=== PATIENT | female | born 1945 | race Caucasian/White ===

== ENCOUNTER 2020-08-14 22:28 | Inpatient (IN) | payer MEDICARE, OTHER ==
[~2020-08-14] VITALS: Ht 160 cm; Wt 45.4 kg
[~2020-08-14 22:28] MED LIST: LEVO125T8 PO; OXYC1TAB12 PO; PRAV40TA3 PO
--- NOTE | 2020-08-14 22:35 | NUR ---
PT BIBLAPD FROM HOME FOR 5150 C/O WORSENING DEPRESSION. PT AAOX4 BREATHING EVENLY AND UNLABORED. PT STATES SHE IS " ALLERGIC TO ALCOHOL AND KNOWS SHE CAN DRINK ONE BEER AND KILL HERSELF". PT SKIN WARM, DRY, AND INTACT. PT ATTACHED TO MONITOR. MD AT BEDSIDE. WILL CONTINUE TO MONITOR.
--- NOTE | 2020-08-14 22:46 | NUR ---
LAB AT BEDSIDE
[2020-08-14 22:54] LABS: BASOPHILS # (AUTO) 0.1 /CMM (0.0-0.2); BASOPHILS % (AUTO) 0.9 % (0.0-2.0); EOSINOPHILS % (AUTO) 3.1 % (0.0-6.0); HEMATOCRIT 37 % (33-45); HEMOGLOBIN 12.1 g/dL (11.5-14.8); LYMPHOCYTES # (AUTO) 1.5 /CMM (0.8-4.8); LYMPHOCYTES % (AUTO) 22.5 % (20.0-44.0); MEAN CORPUSCULAR HGB CONC 33 g/dl (31.0-36.0); MEAN CORPUSCULAR VOLUME 97 fL (82-100); MONOCYTES # (AUTO) 0.5 /CMM (0.1-1.30); MONOCYTES % (AUTO) 7.6 % (2.0-12.0); NEUTROPHILS # (AUTO) 4.4 /CMM (1.8-8.9); NEUTROPHILS % (AUTO) 65.9 % (43.0-81.0); PLATELET COUNT (AUTO) 470 /CMM (150-450); RED BLOOD CELL COUNT(AUTO) 3.79 MIL/uL (4.0-5.2); WHITE BLOOD COUNT (AUTO) 6.7 K/uL (4.3-11.0)
--- NOTE | 2020-08-14 22:58 | NUR ---
URINE COLLECTED, SENT TO LAB.
--- NOTE | 2020-08-14 22:58 | NUR ---
CHRISTOID SWABBED, SENT TO LAB.
[2020-08-14 23:14] LABS: ALANINE AMINOTRANSFERASE 10 U/L (12-78); ALBUMIN 3.1 g/dL (3.4-5.0); ALCOHOL, BLOOD < 3 mg/dL (0-0); ALKALINE PHOSPHATASE 121 U/L (46-116); ASPARTATE AMINOTRANSFERASE 14 U/L (15-37); BILIRUBIN,TOTAL 0.2 mg/dL (0.2-1.0); CALCIUM, SERUM 8.8 mg/dL (8.5-10.1); CARBON DIOXIDE 27 mmol/L (21-32); CHLORIDE 103 mmol/L (98-107); CREATININE 0.7 mg/dL (0.6-1.3); GLUCOSE 62 mg/dL (74-106); POTASSIUM 3.4 mmol/L (3.5-5.1); SODIUM SERUM 140 mmol/L (136-145); TOTAL PROTEIN, SERUM 6.8 g/dL (6.4-8.2); UREA NITROGEN, BLOOD 8 mg/dL (7-18)
[2020-08-14 23:22] LABS: ACETAMINOPHEN < 2 ug/ml (10-30)
[2020-08-14 23:30] LABS: BILIRUBIN,URINE Negative (NEGATIVE); COLOR,URINE YELLOW (YELLOW); LEUKOCYTE ESTERASE ,URINE Trace (NEGATIVE); NITRITE, URINE Negative (NEGATIVE); PROTEIN,URINE Negative (NEGATIVE); UGLUCOSE Negative (NEGATIVE); UROBILINOGEN,URINE 0.2 EU/dL (0.2)
--- NOTE | 2020-08-14 23:32 | NUR ---
lab called regarding negative covid result.
[2020-08-14] MEDS ORDERED: ACETAMINOPHEN 325 MG TABLET ONE (23:33)
--- NOTE | 2020-08-14 23:39 | NUR ---
PT IS REQUESTING PERCOCET FOR PAIN GEN BODY PAIN. PT WAS OFFERED TYLENOL. AND SHE REFUSED ANY REACTION TO ACETAMINOPHEN.
[2020-08-14 23:49] LABS: BACTERIA,URINE Few /HPF (None Seen); SQUAMOUS EPITHELIAL CELL,UR Few /HPF (None Seen)
[2020-08-15] MEDS ORDERED: ACETAMINOPHEN 325 MG TABLET PO ONE
[2020-08-15] MEDS ORDERED: clonazePAM 1 MG TABLET PO ONE
[2020-08-15] MEDS ORDERED: QUETIAPINE FUMARATE 100 MG TABLET PO ONE
[2020-08-15] MEDS ORDERED: QUETIAPINE FUMARATE 25 MG TABLET ONE (00:27)
[2020-08-15] MEDS ORDERED: clonazePAM 0.5 MG TABLET ONE (00:27)
--- NOTE | 2020-08-15 00:47 | NUR ---
pt moved to er bed 16 for closer observation. pt also provided with food as requested.
--- NOTE | 2020-08-15 03:47 | NUR ---
Patient is resting comfortably in bed with eyes closed. Easily aroused. VSS. will cont to monitor l
--- NOTE | 2020-08-15 05:05 | NUR ---
Patient is resting comfortably in bed with eyes closed. Easily aroused. will cont to monitor
--- NOTE | 2020-08-15 08:43 | NUR ---
ROOM GIVEN 216-[id number]
[2020-08-15 09:30] VITALS: BP 132/93
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
[2020-08-15] MEDS ORDERED: MAGNESIUM HYDROXIDE 30 ML UDC PO PRN (10:00)
--- NOTE | 2020-08-15 10:00 | NUR ---
NOTIFIED DR QUIÑONES FOR THE ADMISSION,RECEIVED ADMITTING ORDERS AND CARRIED OUT.PT IS ON .
[2020-08-15] MEDS: oxyCODONE/APAP (5/325 MG) 1 UDTAB TABLET PO PRN ×2 (10:33→18:22)
[2020-08-15] MEDS: LEVOTHYROXINE SODIUM 125 MCG TABLET PO SCH (10:33)
[2020-08-15] MEDS ORDERED: BLOOD SUGAR DIAGNOSTIC 1 EACH STRIP IN ONE (11:30)
[2020-08-15 16:00] VITALS: BP 90/54
--- NOTE | 2020-08-15 16:18 | NUR ---
RN-CO: Patient was given the Patient's Rights Handbook.
[2020-08-15] MEDS ORDERED: TRAZODONE 50 MG TABLET PO PRN (20:30)
[2020-08-15 20:41] VITALS: BP 127/72
[2020-08-15] MEDS: TEMAZEPAM 7.5 MG CAPSULE PO PRN (21:46)
[2020-08-15] MEDS: QUETIAPINE FUMARATE 100 MG TABLET PO SCH (21:46)
[2020-08-15] MEDS: ATORVASTATIN 10 MG TABLET PO SCH (22:11)
[2020-08-16] MEDS: oxyCODONE/APAP (5/325 MG) 1 UDTAB TABLET PO PRN ×3 (02:38→18:20)
[2020-08-16 07:54] LABS: ALBUMIN 2.9 g/dL (3.4-5.0); BILIRUBIN,TOTAL 0.3 mg/dL (0.2-1.0); CALCIUM, SERUM 8.9 mg/dL (8.5-10.1); CREATININE 0.6 mg/dL (0.6-1.3); POTASSIUM 3.8 mmol/L (3.5-5.1); TOTAL PROTEIN, SERUM 6.5 g/dL (6.4-8.2)
[2020-08-16 08:00] VITALS: BP 99/56
[2020-08-16] MEDS: VENLAFAXINE XR 75 MG CAP.SR.24H PO SCH (08:27)
[2020-08-16] MEDS: LEVOTHYROXINE SODIUM 125 MCG TABLET PO SCH (08:27)
--- NOTE | 2020-08-16 10:33 | NUR ---
gps bisque cleaner: notes c/o 01/04 back pain, medicated with 1 tab po of percocet. will continue to monitor.
--- NOTE | 2020-08-16 11:33 | NUR ---
gps hand dry cleaner: notes in bed sounds asleep. no s/s of distress noted. will continue to monitor.
--- NOTE | 2020-08-16 14:50 | NUR ---
Initial Discharge Plan: Pt currently resides in [facility] located at [address] [place] [address]; ([phone]). Per pt, she would like to return. SW will work with the pt and the MD regarding appropriate discharge planning. SW will form a safe and proper discharge.
[2020-08-16] MEDS: LORAZEPAM 0.5 MG TABLET PO PRN (15:09)
[2020-08-16 16:00] VITALS: BP 98/50
--- NOTE | 2020-08-16 18:20 | NUR ---
gps php software engineer: notes c/o 02/04 back pain, medicated with 1 tab po of percocet. will continue to monitor.
--- NOTE | 2020-08-16 19:20 | NUR ---
gps green jobs trainer: notes sounds asleep with no distress noted. report given to jolie (rn) for continuity of care.
[2020-08-16 20:24] VITALS: BP 147/63
[2020-08-16] MEDS: ATORVASTATIN 10 MG TABLET PO SCH (21:12)
[2020-08-16] MEDS: QUETIAPINE FUMARATE 100 MG TABLET PO SCH (21:13)
[2020-08-16] MEDS: TEMAZEPAM 7.5 MG CAPSULE PO PRN (21:13)
[2020-08-17] MEDS: oxyCODONE/APAP (5/325 MG) 1 UDTAB TABLET PO PRN ×3 (03:08→18:58)
[2020-08-17 08:00] VITALS: BP 109/65
[2020-08-17] MEDS: LEVOTHYROXINE SODIUM 125 MCG TABLET PO SCH (08:37)
[2020-08-17] MEDS: VENLAFAXINE XR 75 MG CAP.SR.24H PO SCH (08:37)
--- NOTE | 2020-08-17 11:03 | NUR ---
rn notes administered Percocet 5/325 mg po prn for generalized pain 02/04 per patient request, v/s taken bp-129/81, p-81, will monitoring.
[2020-08-17 16:00] VITALS: BP 99/64
[2020-08-17] MEDS: LORAZEPAM 0.5 MG TABLET PO PRN (16:50)
--- NOTE | 2020-08-17 16:50 | NUR ---
rn notes administered ativan 0.5 mg po prn for anxiety per patient request. will monitoring.
--- NOTE | 2020-08-17 18:58 | NUR ---
rn notes administered Percocet 5/325 mg po prn fo lower back pain 02/04 per patient request. bp 102/64, p-81. will monitoring.
[2020-08-17 20:50] VITALS: BP 103/59
[2020-08-17] MEDS: QUETIAPINE FUMARATE 100 MG TABLET PO SCH (21:06)
[2020-08-17] MEDS: ATORVASTATIN 10 MG TABLET PO SCH (21:06)
[2020-08-17] MEDS: TEMAZEPAM 7.5 MG CAPSULE PO PRN (22:02)
--- NOTE | 2020-08-17 22:02 | NUR ---
NURSE NOTES: PATIENT REQUESTING FOR MEDICATION FOR SLEEP. RESTORIL 7.5 MG GIVEN ORALLY. WILL MONITOR PATIENT AND EFFICACY OF MEDICATION FOR THE PATIENT.
[2020-08-18] MEDS: oxyCODONE/APAP (5/325 MG) 1 UDTAB TABLET PO PRN ×4 (03:23→21:32)
[2020-08-18] MEDS: LEVOTHYROXINE SODIUM 125 MCG TABLET PO SCH (07:44)
[2020-08-18 08:00] VITALS: BP 106/55
[2020-08-18] MEDS: VENLAFAXINE XR 75 MG CAP.SR.24H PO SCH (09:07)
[2020-08-18 16:00] VITALS: BP 105/70
[2020-08-18 19:53] VITALS: BP 113/71
[2020-08-18] MEDS: QUETIAPINE FUMARATE 100 MG TABLET PO SCH (21:24)
[2020-08-18] MEDS: TEMAZEPAM 7.5 MG CAPSULE PO PRN (21:31)
[2020-08-18] MEDS ORDERED: ATORVASTATIN 10 MG TABLET ONE (22:10)
[2020-08-18] MEDS: ATORVASTATIN 10 MG TABLET PO SCH (22:26)
[2020-08-19 08:00] VITALS: BP 105/72
[2020-08-19] MEDS: LEVOTHYROXINE SODIUM 125 MCG TABLET PO SCH (09:21)
[2020-08-19] MEDS: VENLAFAXINE XR 75 MG CAP.SR.24H PO SCH (09:21)
[2020-08-19] MEDS: oxyCODONE/APAP (5/325 MG) 1 UDTAB TABLET PO PRN ×3 (11:38→19:26)
[2020-08-19 16:00] VITALS: BP 108/60
[2020-08-19] MEDS: LORAZEPAM 0.5 MG TABLET PO PRN (16:32)
--- NOTE | 2020-08-19 19:26 | NUR ---
GPS-RN NOTES: LOWER BACK PAIN PATIENT C/O LOWER BACK PAIN ON A PAIN SCALE OF 8/10. ADMINISTERED PERCOCET 5/325MG PO ORDERED. WILL CONTINUE TO REASSESS PAIN.
[2020-08-19 19:59] VITALS: BP 102/60
[2020-08-19] MEDS: QUETIAPINE FUMARATE 100 MG TABLET PO SCH (21:12)
[2020-08-19] MEDS: ATORVASTATIN 10 MG TABLET PO SCH (21:12)
[2020-08-20] MEDS: TEMAZEPAM 7.5 MG CAPSULE PO PRN (02:09)
--- NOTE | 2020-08-20 02:09 | NUR ---
GPS-RN NOTES: INSOMNIA PATIENT C/O INABILITY TO SLEEP. ADMINISTERED RESTORIL 7.5MG PO ORDERED. WILL CONTINUE TO MONITOR.
[2020-08-20] MEDS: LEVOTHYROXINE SODIUM 125 MCG TABLET PO SCH (07:39)
[2020-08-20] MEDS: oxyCODONE/APAP (5/325 MG) 1 UDTAB TABLET PO PRN ×3 (07:39→22:53)
--- NOTE | 2020-08-20 07:56 | NUR ---
RN Note: Easily arousable, aaox3, with c/o lower back pain 02/04-medicated with prn percocet. No change in gait nor morning activity. Very little breakfast consumed. No
[2020-08-20 08:00] VITALS: BP 102/47
[2020-08-20] MEDS: VENLAFAXINE XR 75 MG CAP.SR.24H PO SCH (08:30)
[2020-08-20] MEDS: LORAZEPAM 0.5 MG TABLET PO PRN ×2 (12:38→19:49)
[2020-08-20 16:00] VITALS: BP 121/74
[2020-08-20] MEDS: QUETIAPINE FUMARATE 100 MG TABLET PO SCH (21:03)
[2020-08-20] MEDS: ATORVASTATIN 10 MG TABLET PO SCH (21:04)
[2020-08-20 21:32] VITALS: BP 138/86
[2020-08-21] MEDS: TEMAZEPAM 7.5 MG CAPSULE PO PRN (02:16)
[2020-08-21 08:00] VITALS: BP 97/51
[2020-08-21] MEDS: VENLAFAXINE XR 75 MG CAP.SR.24H PO SCH (08:13)
[2020-08-21] MEDS: LEVOTHYROXINE SODIUM 125 MCG TABLET PO SCH (08:13)
[2020-08-21] MEDS: oxyCODONE/APAP (5/325 MG) 1 UDTAB TABLET PO PRN ×3 (08:16→16:34)
--- NOTE | 2020-08-21 11:02 | NUR ---
Probable Cause Hearing: Pts [id number] hold was upheld for grave disability and danger to self.
[2020-08-21] MEDS: LORAZEPAM 0.5 MG TABLET PO PRN ×2 (13:54→19:44)
[2020-08-21 16:00] VITALS: BP 117/70
--- NOTE | 2020-08-21 19:15 | NUR ---
PT AOX3, AMBULATING IN THE HALLS WITH A STEADY GAIT. DENIES SI AT THIS TIME. DENIES PAIN AT THIS TIME. COOPERATIVE WITH CARE.
[2020-08-21] MEDS: QUETIAPINE FUMARATE 100 MG TABLET PO SCH (21:03)
[2020-08-21] MEDS: ATORVASTATIN 10 MG TABLET PO SCH (21:03)
[2020-08-21 21:09] VITALS: BP 135/82
[2020-08-22] MEDS: oxyCODONE/APAP (5/325 MG) 1 UDTAB TABLET PO PRN ×3 (00:16→16:26)
--- NOTE | 2020-08-22 06:31 | NUR ---
PT SLEPT THROUGHOUT THE NIGHT. VERY COMPLIANT, CALM AND COOPERATIVE. AOX3, ALFRED, RESPIRATIONS EVEN AND UNLABORED. C/O BACK PAIN AT HS AND MEDICATED PER MD ORDER. DENIES SI AND HI. SAFETY MAINTAINED.
[2020-08-22] MEDS: LEVOTHYROXINE SODIUM 125 MCG TABLET PO SCH (07:30)
[2020-08-22 08:00] VITALS: BP 97/65
[2020-08-22] MEDS: VENLAFAXINE XR 75 MG CAP.SR.24H PO SCH (08:35)
[2020-08-22] MEDS: ENSURE ENLIVE 237 ML LIQUID (VANILLA) PO SCH ×3 (10:30→17:42)
[2020-08-22] MEDS: LORAZEPAM 0.5 MG TABLET PO PRN (13:48)
--- NOTE | 2020-08-22 14:20 | NUR ---
Individual Intervention: SW met with the pt and she stated that she wanted a listed of psychiatrists that take Medicare. SW stated that she will print it out and provide that information to her. Pt stated that she was going to call and find one for herself because she does not currently like the psychiatrist that she sees.
[2020-08-22 16:00] VITALS: BP 124/67
[2020-08-22 20:00] VITALS: BP 130/79
[2020-08-22 20:42] VITALS: BP 130/79
[2020-08-22] MEDS: ATORVASTATIN 10 MG TABLET PO SCH (21:05)
[2020-08-22] MEDS: QUETIAPINE FUMARATE 100 MG TABLET PO SCH (21:05)
[2020-08-23] MEDS: oxyCODONE/APAP (5/325 MG) 1 UDTAB TABLET PO PRN ×4 (00:37→23:37)
--- NOTE | 2020-08-23 00:39 | NUR ---
GPS RN NOTE: PAIN PATIENT C/O LOWER BACK PAIN 02/04, WANTED TO TAKE PERCOCET ONLY. PRN PERCOCET 5/325 MG 1 TAB PO GIVEN ORDERED. WILL CONTINUE TO MONITOR.
[2020-08-23] MEDS: LEVOTHYROXINE SODIUM 125 MCG TABLET PO SCH (07:44)
[2020-08-23 08:00] VITALS: BP 110/58
[2020-08-23] MEDS: ENSURE ENLIVE 237 ML LIQUID (VANILLA) PO SCH ×3 (08:06→16:41)
[2020-08-23] MEDS: VENLAFAXINE XR 75 MG CAP.SR.24H PO SCH (08:06)
--- NOTE | 2020-08-23 09:00 | NUR ---
RN NOTE- PT ALERT ORIENTED PERSON PLACE TIME PURPOSE CALM DIRECTABLE PO INTAKE GOOD MED COMPLIANT DENIES ALL
--- NOTE | 2020-08-23 11:30 | NUR ---
Individual Intervention: SW met with the pt in the SW office and the pt stated that she wanted to be discharged to the [facility] on Wednesday because she has been feeling better and less depressed. MARTHA stated that the pts MD stated that would be appreciate and so the SW will plan for that.
[2020-08-23] MEDS: LORAZEPAM 0.5 MG TABLET PO PRN (13:50)
--- NOTE | 2020-08-23 13:50 | NUR ---
RN NOTE- PT C/O ANXIETY RESTLESSNESS. ATIVAN 0.5 MG GIVEN
[2020-08-23 16:00] VITALS: BP 124/75
[2020-08-23 20:33] VITALS: BP 139/76
[2020-08-23] MEDS: ATORVASTATIN 10 MG TABLET PO SCH (21:02)
[2020-08-23] MEDS: QUETIAPINE FUMARATE 100 MG TABLET PO SCH (21:02)
--- NOTE | 2020-08-23 23:38 | NUR ---
GPS-RN NOTES: LOWER BACK PAIN PATIENT C/O LOWER BACK PAIN ON A PAIN SCALE OF 8/10. ADMINISTERED PERCOCET 5/325MG PO ORDERED. WILL CONTINUE TO MONITOR, REASSESS PAIN.
--- NOTE | 2020-08-24 07:01 | NUR ---
RN NOTES: PATIENT RESTING IN ROOM. NO S/S OF DISTRESS. NO CHANGE OF CONDITION NOTED, SAFETY PRECAUTION MAINTAINED, ALL PATIENT CARE NEEDS MET AT THIS TIME. WILL CONTINUE TO MONITOR PATIENT FOR MOOD, BEHAVIOR AND SAFETY AND ENDORSE TO AM SHIFT FOR CONTINUITY CARE.
[2020-08-24 08:00] VITALS: BP 106/58
[2020-08-24] MEDS: LEVOTHYROXINE SODIUM 125 MCG TABLET PO SCH (08:39)
[2020-08-24] MEDS: oxyCODONE/APAP (5/325 MG) 1 UDTAB TABLET PO PRN ×2 (08:39→16:21)
[2020-08-24] MEDS: VENLAFAXINE XR 75 MG CAP.SR.24H PO SCH (08:39)
[2020-08-24] MEDS: ENSURE ENLIVE 237 ML LIQUID (VANILLA) PO SCH ×3 (09:02→16:24)
[2020-08-24] MEDS: LORAZEPAM 0.5 MG TABLET PO PRN (14:43)
[2020-08-24 16:00] VITALS: BP 90/57
[2020-08-24] MEDS: MAG HYDROX/AL HYDROX/SIMETH 30 ML UDC PO PRN (16:21)
[2020-08-24 20:10] VITALS: BP 120/73
[2020-08-24 20:11] VITALS: BP 120/73
[2020-08-24 20:23] VITALS: BP 120/73
[2020-08-24] MEDS: QUETIAPINE FUMARATE 100 MG TABLET PO SCH (21:30)
[2020-08-24] MEDS: ATORVASTATIN 10 MG TABLET PO SCH (21:31)
[2020-08-25] MEDS: oxyCODONE/APAP (5/325 MG) 1 UDTAB TABLET PO PRN ×3 (00:36→17:00)
--- NOTE | 2020-08-25 00:39 | NUR ---
RN NOTE: PAIN PATIENT C/O LOWER BACK PAIN 02/04 & REQUESTED TO GET PERCOCET ONLY. PRN PERCOCET 5/325 MG 1 TAB PO ADMINISTERED. WILL CONTINUE TO MONITOR.
[2020-08-25 08:00] VITALS: BP 105/69
[2020-08-25] MEDS: VENLAFAXINE XR 75 MG CAP.SR.24H PO SCH (08:45)
[2020-08-25] MEDS: LEVOTHYROXINE SODIUM 125 MCG TABLET PO SCH (08:46)
[2020-08-25] MEDS: ENSURE ENLIVE 237 ML LIQUID (VANILLA) PO SCH ×3 (08:48→15:18)
[2020-08-25] MEDS: LORAZEPAM 0.5 MG TABLET PO PRN (13:56)
[2020-08-25] MEDS: MAG HYDROX/AL HYDROX/SIMETH 30 ML UDC PO PRN (15:18)
[2020-08-25 16:00] VITALS: BP 115/69
[2020-08-25 20:52] VITALS: BP 117/69
[2020-08-25] MEDS: ATORVASTATIN 10 MG TABLET PO SCH (20:57)
[2020-08-25] MEDS: QUETIAPINE FUMARATE 100 MG TABLET PO SCH (20:57)
[2020-08-25] MEDS: TEMAZEPAM 7.5 MG CAPSULE PO PRN (21:45)
--- NOTE | 2020-08-25 21:50 | NUR ---
RN NOTE PATIENT C/O NOT BEING ABLE TO SLEEP, REQUESTED RESTORIL. MEDICATION ADMINISTERED WILL CONTINUE MONITORING CLOSELY.
[2020-08-26] MEDS: oxyCODONE/APAP (5/325 MG) 1 UDTAB TABLET PO PRN ×2 (01:11→08:55)
[2020-08-26 08:00] VITALS: BP 107/57
[2020-08-26] MEDS: LEVOTHYROXINE SODIUM 125 MCG TABLET PO SCH (08:55)
[2020-08-26] MEDS: VENLAFAXINE XR 75 MG CAP.SR.24H PO SCH (08:55)
[2020-08-26] MEDS: ENSURE ENLIVE 237 ML LIQUID (VANILLA) PO SCH ×2 (08:56→13:21)
[2020-08-26] MEDS: LORAZEPAM 0.5 MG TABLET PO PRN (11:31)
--- NOTE | 2020-08-26 13:10 | NUR ---
Discharge Note: Pt will be discharged to her [facility] located at [address] [place] [id number]; ([phone]). Pt will be discharged at 1:00pm via [facility]. SW did not have any family or any parts counterperson to notify. Upon discharge, pts mood appears to be euthymic with congruent affect. Pt denies suicidal and homicidal ideation and denies visual and auditory hallucinations. Pt appears to be alert and oriented x4 (time, place, self and situation). Pt appears to be ambulatory and appropriately dressed and groomed. Pt will follow up with psychiatrist, Dr. Carloine Arce, located at [address] [facility] [address], [place] [address] ([phone]) on 09/09/20 at 9:00am and will also follow up with bucket operator, Dr. Zackery Romero, located at [address] [place] [phone] ([phone]) on 09/24/20 at 2:00pm. The multidisciplinary exit care form was done, printed, signed, and given to the patient.
--- NOTE | 2020-08-26 14:23 | NUR ---
JUNIOR UNDERWRITER NOTE: 74 Y/O FEMALE DISCHARGED TO INTERMEDIATE IN STABLE CONDITION. MOOD EUTHYMIC WITH CONGRUENT AFFECT. COOPERATIVE AND COMPLIANT. STATES "I WILL CONTINUE TO TAKE MY MEDICINE ORDERED AND FOLLOW UP WITH MY DOCTORS." DENIES SI/HI, VISUAL AND AUDITORY HALLUCINATIONS. MEDICATIONS REVIEWED AND PRESCRIPTIONS GIVEN. DISCUSSED AFTERCARE AT INTERMEDIATE AND THE NEED TO FOLLOW UP WITH PHYSICIANS. PARANOIA, DEPRESSION AND ANXIETY LESSEN. TREATMENT PLAN GOALS MET. COPY OF AFTERCARE PROVIDED AND BELONGINGS GIVEN. ESCORTED TO [facility]AXI IN WHEELCHAIR ACCOMPANIED BY STAFF MEMBER.
== END 2020-08-26 14:15 | disposition home or self-care (01) | DRG 885 ==
LOC: ER 22:31 → GPS 08-15 08:58
PROVIDERS: ADMIT Psychiatry & Neurology Psychiatry; ATTEND Internal Medicine
DX: F33.3 Major depressive disorder, recurrent, severe with psychotic symptoms (principal); F23 Brief psychotic disorder; R45.851 Suicidal ideations; E44.0 Moderate protein-calorie malnutrition; Z68.1 Body mass index [BMI] 19.9 or less, adult; F03.90 Unspecified dementia, unspecified severity, without behavioral disturbance, psychotic disturbance, mood disturbance, and anxiety; E03.9 Hypothyroidism, unspecified; I25.10 Atherosclerotic heart disease of native coronary artery without angina pectoris; K44.9 Diaphragmatic hernia without obstruction or gangrene; F43.10 Post-traumatic stress disorder, unspecified; G89.29 Other chronic pain; Z86.73 Personal history of transient ischemic attack (TIA), and cerebral infarction without residual deficits; M62.81 Muscle weakness (generalized); F41.9 Anxiety disorder, unspecified; F29 Unspecified psychosis not due to a substance or known physiological condition; M48.00 Spinal stenosis, site unspecified; K27.9 Peptic ulcer, site unspecified, unspecified as acute or chronic, without hemorrhage or perforation; Z20.822 Contact with and (suspected) exposure to COVID-19; Z87.11 Personal history of peptic ulcer disease
CPT/HCPCS: 36415; 80048-TC; 80053-TC; 80061-TC; 80076-TC; 81001; 82962-TC; 85025-TC; 87081-TC; 97112-TC; 97116-TC; 97530-TC; C9803; G0480

== ENCOUNTER 2022-01-22 17:54 | Inpatient (IN) | payer OTHER ==
[~2022-01-22] VITALS: Ht 154.9 cm; Wt 54.4 kg
[2022-01-22] MEDS ORDERED: ONDANSETRON HCL/PF 4 MG/2 ML VIAL IVP ONE (18:30)
[2022-01-22] MEDS ORDERED: IV NS 0.9% 1,000 ML BAG IV ONE (18:30)
[2022-01-22] MEDS ORDERED: TRAZ-257 MT (18:31)
[2022-01-22] MEDS ORDERED: ONDANSETRON HCL/PF 4 MG/2 ML VIAL ONE (18:34)
--- NOTE | 2022-01-22 18:38 | NUR ---
bibra88, called 911 c/o lower back pain, nausea and vomiting today. Loss of appetite x a month. On room air, breathing evenly and unlabored. Kept comfortable, will continue to monitor accordingly.
--- NOTE | 2022-01-22 18:44 | NUR ---
covid swab collected dna sent to lab.
[2022-01-22] MEDS ORDERED: ACETAMINOPHEN ES 500 MG TABLET PO ONE (19:00)
[2022-01-22] MEDS ORDERED: ACETAMINOPHEN ES 500 MG TABLET ONE (19:02)
[2022-01-22 19:29] LABS: CALCIUM, SERUM 8.7 mg/dL (8.5-10.1); CARBON DIOXIDE 24 mmol/L (21-32); CHLORIDE 100 mmol/L (98-107); CREATININE 0.5 mg/dL (0.6-1.3); GLUCOSE 94 mg/dL (74-106); POTASSIUM 3.6 mmol/L (3.5-5.1); SODIUM SERUM 135 mmol/L (136-145); UREA NITROGEN, BLOOD 5 mg/dL (7-18)
--- NOTE | 2022-01-22 20:11 | NUR ---
FOLLOWED UP WITH LAB REGARDING RESULT
[2022-01-22 20:24] LABS: BASOPHILS % (AUTO) 0.3 % (0.0-2.0); EOSINOPHILS % (AUTO) 0.5 % (0.0-6.0); HEMATOCRIT 36 % (33-45); HEMOGLOBIN 12.3 g/dL (11.5-14.8); LYMPHOCYTES # (AUTO) 1.8 K/uL (0.8-4.8); LYMPHOCYTES % (AUTO) 21.3 % (20.0-44.0); MEAN CORPUSCULAR HGB CONC 34 g/dl (31.0-36.0); MEAN CORPUSCULAR VOLUME 97 fL (82-100); MONOCYTES # (AUTO) 0.9 K/uL (0.1-1.30); MONOCYTES % (AUTO) 10.8 % (2.0-12.0); NEUTROPHILS # (AUTO) 5.6 K/uL (1.8-8.9); NEUTROPHILS % (AUTO) 67.1 % (43.0-81.0); PLATELET COUNT (AUTO) 447 K/uL (150-450); RED BLOOD CELL COUNT(AUTO) 3.72 MIL/uL (4.0-5.2); WHITE BLOOD COUNT (AUTO) 8.3 K/uL (4.3-11.0)
[2022-01-22 20:44] LABS: ALKALINE PHOSPHATASE 88 U/L (46-116); BILIRUBIN,DIRECT 0.1 mg/dL (0.0-0.2); BILIRUBIN,TOTAL 0.3 mg/dL (0.2-1.0)
[2022-01-22 20:45] LABS: ALANINE AMINOTRANSFERASE 16 U/L (12-78); ALBUMIN 3.5 g/dL (3.4-5.0); ASPARTATE AMINOTRANSFERASE 17 U/L (15-37); TOTAL PROTEIN, SERUM 7.2 g/dL (6.4-8.2)
--- NOTE | 2022-01-22 21:07 | NUR ---
SPOKE WITH BUSHRA, ELECTRICAL LINESWORKER FOR CLINICALS.
--- NOTE | 2022-01-22 22:45 | NUR ---
FOLLOWED UP WTAnastacio TOMLINSON FROM [employer]. AWAITING FOR A PEER TO PEER.
--- NOTE | 2022-01-22 22:49 | NUR ---
SPOKE WITH LUCINDA, ACCOUNTING BOOKKEEPER. PT IS AUTHORIZED FOR ADMISSION. AUTH# [id number]
[2022-01-22] MEDS ORDERED: IV NS 0.9% 1,000 ML IV PRN (23:30)
[2022-01-22] MEDS ORDERED: Z GUARD REMEDY 4 OZ OINT TP PRN (23:30)
[2022-01-22] MEDS ORDERED: MAG HYDROX/AL HYDROX/SIMETH 30 ML UDC PO PRN (23:30)
[2022-01-22] MEDS ORDERED: MAGNESIUM HYDROXIDE 30 ML UDC PO PRN (23:30)
[2022-01-22] MEDS ORDERED: ONDANSETRON HCL/PF 4 MG/2 ML VIAL IVP PRN (23:30)
[2022-01-22] MEDS ORDERED: ZOLPIDEM TARTRATE 5 MG TABLET PO PRN (23:30)
[2022-01-22] MEDS ORDERED: ACETAMINOPHEN 325 MG TABLET PO PRN (23:30)
--- NOTE | 2022-01-23 04:58 | NUR ---
PROTECTOR PLATE ATTACHER AT PT'S BEDSIDE
[2022-01-23] MEDS ORDERED: TRAZODONE 50 MG TABLET PO PRN (05:00)
[2022-01-23 05:04] LABS: BASOPHILS % (AUTO) 0.6 % (0.0-2.0); EOSINOPHILS % (AUTO) 0.8 % (0.0-6.0); HEMATOCRIT 37 % (33-45); HEMOGLOBIN 12.6 g/dL (11.5-14.8); LYMPHOCYTES # (AUTO) 1.1 K/uL (0.8-4.8); LYMPHOCYTES % (AUTO) 15.4 % (20.0-44.0); MEAN CORPUSCULAR HGB CONC 34 g/dl (31.0-36.0); MEAN CORPUSCULAR VOLUME 98 fL (82-100); MONOCYTES # (AUTO) 0.6 K/uL (0.1-1.30); NEUTROPHILS # (AUTO) 5.1 K/uL (1.8-8.9); NEUTROPHILS % (AUTO) 74.2 % (43.0-81.0); PLATELET COUNT (AUTO) 378 K/uL (150-450); RED BLOOD CELL COUNT(AUTO) 3.81 MIL/uL (4.0-5.2); WHITE BLOOD COUNT (AUTO) 6.9 K/uL (4.3-11.0)
[2022-01-23 05:23] LABS: CALCIUM, SERUM 8.5 mg/dL (8.5-10.1); CARBON DIOXIDE 26 mmol/L (21-32); CHLORIDE 106 mmol/L (98-107); CREATININE 0.6 mg/dL (0.6-1.3); GLUCOSE 103 mg/dL (74-106); MAGNESIUM 2.3 mg/dL (1.8-2.4); PHOSPHORUS 3.3 mg/dL (2.5-4.9); POTASSIUM 3.7 mmol/L (3.5-5.1); SODIUM SERUM 139 mmol/L (136-145); UREA NITROGEN, BLOOD 6 mg/dL (7-18)
[2022-01-23 05:32] LABS: THYROID STIMULATING HORMONE 2.124 uIU/mL (0.358-3.74)
[2022-01-23] MEDS ORDERED: LEVOTHYROXINE SODIUM 25 MCG TABLET ONE (07:55)
[2022-01-23] MEDS ORDERED: LEVOTHYROXINE SODIUM 100 MCG TABLET ONE (07:55)
[2022-01-23] MEDS ORDERED: LEVOTHYROXINE SODIUM 50 MCG TABLET ONE (07:55)
[2022-01-23] MEDS: LEVOTHYROXINE SODIUM 175 MCG TABLET PO SCH (08:00)
[2022-01-23] MEDS ORDERED: oxyCODONE/APAP (5/325 MG) 1 UDTAB TABLET ONE (09:05)
[2022-01-23] MEDS: oxyCODONE/APAP (5/325 MG) 1 UDTAB TABLET PO PRN ×2 (09:11→21:22)
[2022-01-23] MEDS ORDERED: ONDANSETRON HCL/PF 4 MG/2 ML VIAL ONE (09:35)
--- NOTE | 2022-01-23 14:40 | NUR ---
DR. PEREA AT BEDSIDE
--- NOTE | 2022-01-23 16:45 | NUR ---
SEEN BY CLINICIAN ART
--- NOTE | 2022-01-23 17:12 | NUR ---
Michelle hendricks in [facility] - 01/23/22 at 1845 by BONNIE BED [id number] - A
--- NOTE | 2022-01-23 18:41 | NUR ---
REPORT GIVEN TO THANG GOLDSTEIN FOR AMIRA
[2022-01-23] MEDS ORDERED: clonazePAM 0.5 MG TABLET PO PRN (19:30)
[2022-01-23] MEDS ORDERED: MAGNESIUM HYDROXIDE 30 ML UDC PO PRN (19:30)
[2022-01-23] MEDS ORDERED: MAG HYDROX/AL HYDROX/SIMETH 30 ML UDC PO PRN (19:30)
[2022-01-23] MEDS ORDERED: TEMAZEPAM 7.5 MG CAPSULE PO PRN (19:30)
[2022-01-23 20:30] VITALS: BP 114/67
[2022-01-23] MEDS ORDERED: BLOOD SUGAR DIAGNOSTIC 1 EACH STRIP IN ONE (22:00)
[2022-01-23] MEDS ORDERED: ATORVASTATIN 10 MG TABLET PO SCH (22:00)
[2022-01-23 23:30] VITALS: BP 121/73
--- NOTE | 2022-01-23 23:42 | NUR ---
RN NOTES : ADMISSION NOTES: ADMITTED THIS 71Y/O FEMALE PATIENT DIRECT ADMIT FROM [facility] , INITIALLY FROM HOME. ADMITTED TO 5150 HOLD STATUS, PER HOLD PT. BIB SELF COMPLAINING OF DEPRESSION AND SI WITH A PLAN TO DRINK BEER PT. STATED ALLERGIC TO ALCOHOL AND THEREFORE IF SHE DRANK IT SHE WOULD . . UPON FACE TO FACE ASSESSMENT PATIENT IS A&O X ,3 DEPRESSED FLAT AFFECT,ANXIOUS ,EASILY AGITATED, RESTLESS ,PARANOID ,DISHELVED , NEEDY ,DEMENDING ,NEEDS FREQUENTLY REDIRECTIONS , DENIES SI /HI AT THIS TIME, PT. IS POOR HISTORIAN, POOR INSIGHT ,POOR JUDGEMENT , BOTH MD AWARE AND NOTIFIED OF THE ADMISSION, BELONGINGS CONTRABAND WERE DONE , PT. REFUSED SIGNS ADMISSION CONSENT PAPER DUE TO DEPRESSED, POOR HYGINE ,ENCOURAGED PT. TO TAKE SHOWER, PT. RIGHTS DISCUSS BY HOSPITALITY JOB TITLES , PROVIDE THE PT. WITH HANDBOOK, AND MEDICATIONS GUIDE, ENVIRONMENTAL SAFETY CHECK DONE, ENCOURAGED PT. VERBALIZED ANY FEELING CONCERN TO STAFF, ORIENT TO UNIT POLICY, NO ACUTE DISTRESS NOTED,VITAL SIGNS WNL ,DENIES ANY PAIN AT THIS TIME,WILL CONTINUE TO MONITOR FOR Q15 SAFETY AND BEHAVIOR.
--- NOTE | 2022-01-23 23:53 | NUR ---
RN NOTES: PT. REFUSED SKIN ASSESSMENT AND PHOTO TAKEN , PER TP. MY SKIN IS FINE ,NOTHING HAPPENED TO MY SKIN AND I WANT SLEEP, PT. STRONGLY REFUSED , ENCOURAGED X3 , PT. BEHAVIOR EASILY AGITED, UNCOOERTIVE .
--- NOTE | 2022-01-24 06:26 | NUR ---
RN NOTES: UNABLE TO NOTIFY FAMILY MEMBER , PT. DID NIT PROVIDE ANY PHONE NUMBER.
--- NOTE | 2022-01-24 06:28 | NUR ---
RN NOTES: UNABLE TO NOTIFY FAMILY MEMBER , PT. DID NOT PROVIDE ANY CONTACT PHONE NUMBER.
[2022-01-24 08:00] VITALS: BP 98/59
[2022-01-24] MEDS: oxyCODONE/APAP (5/325 MG) 1 UDTAB TABLET PO PRN ×2 (08:19→16:24)
[2022-01-24] MEDS ORDERED: ONDANSETRON 4 MG TAB.RAPDIS PO PRN (09:00)
[2022-01-24] MEDS ORDERED: VENLAFAXINE XR 75 MG CAP.SR.24H PO SCH (09:30)
[2022-01-24] MEDS: LEVOTHYROXINE SODIUM 175 MCG TABLET PO SCH (12:01)
[2022-01-24 16:00] VITALS: BP 118/82
[2022-01-24] MEDS ORDERED: QUETIAPINE FUMARATE 100 MG TABLET PO SCH (22:00)
--- NOTE | 2022-01-25 00:05 | NUR ---
RN NOTES: PT. REFUSED SKIN ASSESSMENT AND PHOTO TAKEN , PT. STRONGLY REFUSED , ENCOURAGED X3 , PT. BEHAVIOR EASILY AGITED, UNCOOERTIVE .
[2022-01-26 08:00] VITALS: BP 103/63
== END 2022-01-23 08:39 | DRG 641 ==
LOC: ER 18:17 → TRANSITION 01-23 04:35 → UNDOADMIN 01-23 04:35 → TRANSITION 01-23 18:39 → UNDODISIN 01-23 18:39 → GPS 01-23 18:39 → UNDODISIN 01-24 19:11
PROVIDERS: ADMIT Nurse Practitioner Acute Care
DX: E86.0 Dehydration (principal); R45.851 Suicidal ideations; R55 Syncope and collapse; E03.9 Hypothyroidism, unspecified; E78.5 Hyperlipidemia, unspecified; G89.4 Chronic pain syndrome; Z86.73 Personal history of transient ischemic attack (TIA), and cerebral infarction without residual deficits; Z87.11 Personal history of peptic ulcer disease; R53.1 Weakness; K22.2 Esophageal obstruction; Z68.22 Body mass index [BMI] 22.0-22.9, adult; Z20.822 Contact with and (suspected) exposure to COVID-19; F32.9 Major depressive disorder, single episode, unspecified
CPT/HCPCS: 36415; 71045-TC; 80048-TC; 80076-TC; 83735-TC; 84100-TC; 84443-TC; 84484-TC; 85025-TC; 87081-TC; 93307-TC; 97116-TC; 97530-TC; C9803; G0378; J2405; J7030

== ENCOUNTER 2022-01-23 04:45 | Inpatient (IN) | payer OTHER ==
[~2022-01-23] VITALS: Ht 154.9 cm; Wt 54.4 kg
[~2022-01-23 04:45] MED LIST changes: +TRAZ-257 MT
[2022-01-24] MEDS ORDERED: MAG HYDROX/AL HYDROX/SIMETH 30 ML UDC PO PRN ×2 (19:00)
[2022-01-24] MEDS ORDERED: ACETAMINOPHEN 325 MG TABLET PO PRN (19:00)
[2022-01-24] MEDS ORDERED: ONDANSETRON 4 MG TAB.RAPDIS PO PRN (19:00)
[2022-01-24] MEDS ORDERED: MAGNESIUM HYDROXIDE 30 ML UDC PO PRN ×2 (19:00)
[2022-01-24] MEDS ORDERED: Z GUARD REMEDY 4 OZ OINT TP PRN (19:00)
[2022-01-24] MEDS ORDERED: TEMAZEPAM 7.5 MG CAPSULE PO PRN (19:00)
[2022-01-24] MEDS ORDERED: TRAZODONE 50 MG TABLET PO PRN (19:00)
--- NOTE | 2022-01-24 19:53 | NUR ---
RN NOTES: PER DAY SHIFT JACK OF ALL TRADES REPORT ,PT. WAS ADMITTED UNDER MEDICAL ACCOUNT , NOW PT. IS UNDER GPS ACCOUNT, ALL DOCUMENTION IS UNDER MEDICAL ACCOUNT , PER REPORT PT. ALL DOCUMENTION WILL TRANSFER ON WEDNESDAY GPS ACCOUNT.
--- NOTE | 2022-01-24 20:10 | NUR ---
RN NOTES: PT.WATCHING TV IN DAY ROOM,FLAT AFFECT,DISORGNIZED,ANXIOUS,EASILY AGITATED.PARANOID, UNCCOPERTIVE , MANIPULATIVE, NEEDY DEMENDING ,NEEDS FREQUENTLY REDIRECTIONS,FOCUS ON PRN PAIN MEDICATIONS, ALL NEEDS ATTENDED AND ANTICIPATED ENCOURAGED PT. TO VERBALIZED ANY FEELING OR CONCERN AND GROUP ACTIVITY,, UNSTEADY GAIT,HIGH FALL RISK, ENCOURAGED PT. TO USING WALKER ,WILL CONTINUE.MONITORING FOR SAFETY AND BEHAVIOR.
[2022-01-24 20:30] VITALS: BP 115/75
[2022-01-24] MEDS: ATORVASTATIN 10 MG TABLET PO SCH (21:08)
[2022-01-24] MEDS: QUETIAPINE FUMARATE 100 MG TABLET PO SCH (21:08)
[2022-01-25] MEDS: oxyCODONE/APAP (5/325 MG) 1 UDTAB TABLET PO PRN ×3 (01:49→18:10)
--- NOTE | 2022-01-25 01:49 | NUR ---
RN NOTES: PAIN PT. C/O LOWER BACK PAIN 03/07 , PERCOCET 2 TAB GIVEN PER PT, REQUEST, WILL CONTINUE TO MONITOR.
[2022-01-25 08:00] VITALS: BP 103/59
--- NOTE | 2022-01-25 08:15 | NUR ---
RN OPENING NOTE PATIENT AWAKE IN BED RESTING. A/O X 3, EASILY AGITATED, NO S/S OF PAIN NOTED AT THIS TIME. ON ROOM AIR, NO DISTRESS OR SHORTNESS OF BREATH NOTED. PATIENT IS COMPLIANT WITH MEDICATIONS. PATIENT DENIES SUICIDE IDEATION AND HOMICIDAL IDEATIONS AT THIS TIME. FALL AND SAFETY MEASURES IN PLACE, BED ALARM ON, BED IN LOW AND LOCK POSITION, CALL LIGHT AND TABLE WITHIN EASY REACH, SIDE RAILS UP X2. WILL CONTINUE TO MONITOR Q15 MINUTES WITH HELP OF STAFF TO MAINTAIN SAFETY.
[2022-01-25] MEDS: VENLAFAXINE XR 75 MG CAP.SR.24H PO SCH (09:54)
[2022-01-25] MEDS: LEVOTHYROXINE SODIUM 175 MCG TABLET PO SCH (09:54)
[2022-01-25] MEDS: PANTOPRAZOLE 40 MG TABLET.DR PO SCH (09:54)
[2022-01-25 16:00] VITALS: BP 100/60
[2022-01-25 20:03] VITALS: BP 115/64
[2022-01-25] MEDS: QUETIAPINE FUMARATE 100 MG TABLET PO SCH (21:10)
[2022-01-25] MEDS: ATORVASTATIN 10 MG TABLET PO SCH (21:10)
[2022-01-26] MEDS: oxyCODONE/APAP (5/325 MG) 1 UDTAB TABLET PO PRN ×2 (06:37→14:53)
[2022-01-26 06:48] LABS: BASOPHILS % (AUTO) 0.5 % (0.0-2.0); EOSINOPHILS % (AUTO) 1.1 % (0.0-6.0); HEMATOCRIT 39 % (33-45); HEMOGLOBIN 13.2 g/dL (11.5-14.8); LYMPHOCYTES # (AUTO) 1.4 K/uL (0.8-4.8); LYMPHOCYTES % (AUTO) 20.2 % (20.0-44.0); MEAN CORPUSCULAR HGB CONC 34 g/dl (31.0-36.0); MEAN CORPUSCULAR VOLUME 98 fL (82-100); MONOCYTES # (AUTO) 0.8 K/uL (0.1-1.30); MONOCYTES % (AUTO) 11.1 % (2.0-12.0); NEUTROPHILS # (AUTO) 4.6 K/uL (1.8-8.9); NEUTROPHILS % (AUTO) 67.1 % (43.0-81.0); PLATELET COUNT (AUTO) 390 K/uL (150-450); RED BLOOD CELL COUNT(AUTO) 3.96 MIL/uL (4.0-5.2); WHITE BLOOD COUNT (AUTO) 6.8 K/uL (4.3-11.0)
[2022-01-26 07:34] LABS: CALCIUM, SERUM 8.9 mg/dL (8.5-10.1); CREATININE 0.6 mg/dL (0.6-1.3); POTASSIUM 4.2 mmol/L (3.5-5.1)
[2022-01-26] MEDS: LEVOTHYROXINE SODIUM 175 MCG TABLET PO SCH (07:36)
[2022-01-26] MEDS: PANTOPRAZOLE 40 MG TABLET.DR PO SCH (07:36)
[2022-01-26] MEDS: VENLAFAXINE XR 75 MG CAP.SR.24H PO SCH (08:52)
--- NOTE | 2022-01-26 09:36 | NUR ---
MARTHA Initial Discharge Plan: Patient stated that she currently resides at [address] [place] [address] and would want to return back. MARTHA will work with the MD and pt to help coordinate appropriate discharge.
--- NOTE | 2022-01-26 09:36 | NUR ---
MARTHA Clinical Note: Pt placed on a 5150 hold for danger to herself. Pt brought to the hospital due to having a suicidal plan and wanting to drink alcohol which she claims she is allergic too. Patient stated that she currently resides at [address] [place] [address] and would want to return back.
--- NOTE | 2022-01-26 09:40 | NUR ---
Treatment Plan: Pt refused to sign treatment plan and was suspicious.
--- NOTE | 2022-01-26 11:35 | NUR ---
UR Note: MARTHA received a call from Latonya ([phone]) ([phone]). Latonya requested admission clinicals and MARTHA faxed it. Latonya stated she will let this policy writer know how many days pt is authorized for. JEFFRY Masters ([phone]), ext: [phone], Nurse Nagel ([phone]) ext: [phone].
[2022-01-26 16:00] VITALS: BP 112/70
[2022-01-26] MEDS: clonazePAM 0.5 MG TABLET PO PRN (18:50)
--- NOTE | 2022-01-26 18:51 | NUR ---
RN NOTE P-T W ANXIETY. KLONOPIN 0.5 MG ADMINISTERED
--- NOTE | 2022-01-26 19:49 | NUR ---
GPS RN OPENING NOTES: RECEIVED PATIENT LAYING IN BED, AWAKE, A/O X3. APPEARS DEPRESSED, FLAT AFFECT, DISORGANIZED, PASSIVE. DENIES SI, HI AND PAIN AT THIS TIME. NO S/S OF DISTRESS. RESPIRATION EVEN AND UNLABORED WITH EQUAL RISE AND FALL OF THE CHEST, ON ROOM AIR. OFFERED FLUID AND SNACKS TOLERATED. BED IN LOWEST POSITION AND LOCKED, SIDE RAILS UP X2 FOR SAFETY. WILL CONTINUE TO MONITOR Q15 FOR MOOD, SAFETY AND BEHAVIOR.
[2022-01-26 20:15] VITALS: BP 129/74
[2022-01-26] MEDS: QUETIAPINE FUMARATE 100 MG TABLET PO SCH (21:14)
[2022-01-26] MEDS: ATORVASTATIN 10 MG TABLET PO SCH (21:14)
[2022-01-27] MEDS: oxyCODONE/APAP (5/325 MG) 1 UDTAB TABLET PO PRN ×2 (01:00→09:07)
--- NOTE | 2022-01-27 01:04 | NUR ---
GPS RN NOTES: PATIENT REQUESTED FOR PERCOCET FOR LOWER BACK PAIN. RATES PAIN LEVEL 8/10. PERCOSET 5/325MG 2TABS GIVEN PO AT 0100. WILL CONTINUE TO MONITOR.
[2022-01-27] MEDS: LEVOTHYROXINE SODIUM 175 MCG TABLET PO SCH (06:49)
[2022-01-27] MEDS: PANTOPRAZOLE 40 MG TABLET.DR PO SCH (06:49)
[2022-01-27 08:00] VITALS: BP 100/58
[2022-01-27] MEDS: VENLAFAXINE XR 75 MG CAP.SR.24H PO SCH (09:07)
--- NOTE | 2022-01-27 10:11 | NUR ---
SW Discharge Note: Pt will be discharged back home located at [address] [place] [address]; ([phone]). Leal admin ([phone]) will poultry picker pt at 3PM. SW did not have any family or any contact center team lead to notify. Upon discharge, pts mood appears to be euthymic with congruent affect. Pt denies suicidal and homicidal ideation and denies visual and auditory hallucinations. Pt appears to be alert and oriented x4 (time, place, self and situation). Pt appears to be ambulatory and appropriately dressed and groomed. Pt will follow up with psychiatrist, Dr. Caroline Arce, located at [address] [facility] [address], [place] [address] ([phone]) at her facility and with mascara molder, Dr. Zackery Romero, located at [address] [place] [address] ([phone]) at her facility. The multidisciplinary exit care form was done, printed, signed, and given to the patient.
[2022-01-27] MEDS: clonazePAM 0.5 MG TABLET PO PRN (13:58)
--- NOTE | 2022-01-27 13:58 | NUR ---
Patient complain of anxiety medicated with Klonopin 0.5mg x1 will continue to monitor .
--- NOTE | 2022-01-27 17:00 | NUR ---
Patient discharged to home (detention).Compliant with medications ,cooperative with treatment plans Patient denies SI/HI/AVH Behavior improved ,psychiatric tx plans met ,medical tx plans differed for for continual monitoring .Educated pt about after care plan (Exit -care)and copy provided Returned personal belongings to patient med list and prescription given and explained to patient able to verbalize understanding, report given to Jaime LUKE in facility .Vs stable ,no c/o pain .Patient seen Dr.Sam Mendez with discharge orders called with discharge orders .Patient discharge at 1700 with staff from detention .
[2022-01-27] MEDS ORDERED: TRAZODONE 50 MG TABLET PO SCH (21:00)
--- NOTE | 2022-01-28 13:25 | NUR ---
UR Contact: MARTHA sent discharge notes to vasyl to [facility] ([phone]).
== END 2022-01-27 17:00 | disposition home or self-care (01) | DRG 885 ==
LOC: UNDOADMIN 04:45 → GPS 04:45
PROVIDERS: ADMIT Nurse Practitioner Psychiatric/Mental Health; ATTEND Nurse Practitioner Acute Care
DX: F33.2 Major depressive disorder, recurrent severe without psychotic features (principal); R45.851 Suicidal ideations; E03.9 Hypothyroidism, unspecified; E78.5 Hyperlipidemia, unspecified; E86.0 Dehydration; F41.9 Anxiety disorder, unspecified; G47.00 Insomnia, unspecified; G89.4 Chronic pain syndrome; R62.7 Adult failure to thrive; K22.2 Esophageal obstruction; Z68.22 Body mass index [BMI] 22.0-22.9, adult; K46.9 Unspecified abdominal hernia without obstruction or gangrene; Z79.899 Other long term (current) drug therapy; Z87.11 Personal history of peptic ulcer disease
CPT/HCPCS: 36415; 80048-TC; 80061-TC; 85025-TC; 97116-TC; 97530-TC